=== PATIENT | female | born 1990 | race Two or more races ===

== ENCOUNTER 2024-08-25 05:56 | Emergency (ER) | payer OTHER ==
[~2024-08-25] VITALS: Ht 149.9 cm; Wt 70.0 kg
[2024-08-25] MEDS: PB/HYOSCY/ATR/SCOP/LIDO/MAALOX 55 ML BOTTLE PO ONE (07:03)
[2024-08-25] MEDS: ONDANSETRON HCL 4 MG/2 ML VIAL IVP ONE (07:03)
[2024-08-25] MEDS: SODIUM CHLORIDE 0.9% 1,000 ML IV ONE (07:03)
[2024-08-25 07:57] LABS: ANION GAP 9 mmol/L (8-16); CALCIUM, TOTAL 8.6 mg/dL (8.8-10.5); CARBON DIOXIDE 24 mmol/L (22-29); CHLORIDE 106 mmol/L (98-107); CREATININE 0.64 mg/dL (0.60-1.30); GLOMERULAR FILTR. RATE CALC > 60 mL/min (>60); GLUCOSE,RANDOM 109 mg/dL (70-110); SODIUM SERUM 139 mmol/L (136-145); UREA NITROGEN, BLOOD 10 mg/dL (7-18)
[2024-08-25 08:01] LABS: BASOPHILS % (AUTO) 0.1 % (0.0-2.0); EOSINOPHILS % (AUTO) 0 % (1.0-6.0); HEMATOCRIT 37.8 % (36-46); HEMOGLOBIN 12.9 g/dL (12.0-16.0); LYMPHOCYTES # (AUTO) 0.8 K/uL (1.0-4.8); LYMPHOCYTES % (AUTO) 10.3 % (22.0-44.0); MEAN CORPUSCULAR HEMOGLOBIN 30.2 pg (26.0-34.0); MEAN CORPUSCULAR HGB CONC 34.2 G/dL (31.0-37.0); MEAN CORPUSCULAR VOLUME 88 fL (80-100); MONOCYTES # (AUTO) 0.2 K/uL (0.1-1.0); MONOCYTES % (AUTO) 2.1 % (2.0-9.0); NEUTROPHILS # (AUTO) 6.4 K/uL (1.8-7.7); PLATELET COUNT (AUTO) 321 K/uL (150-450); RED BLOOD CELL COUNT(AUTO) 4.28 MIL/uL (4.00-5.20); RED CELL DISTRIBUTION WIDTH 13.1 % (11.5-14.5); WHITE BLOOD COUNT (AUTO) 7.3 K/uL (4.5-11.0)
[2024-08-25 08:02] LABS: NEUTROPHILS % (AUTO) 87.5 % (40.0-70.0)
[2024-08-25 08:17] LABS: ALANINE AMINOTRANSFERASE 23 U/L (12-78); ALBUMIN 3.8 g/dL (3.4-5.0); ALKALINE PHOSPHATASE 88 U/L (46-116); ASPARTATE AMINOTRANSFERASE 13 U/L (15-37); BILIRUBIN,TOTAL 0.6 mg/dL (0.1-1.0); HCG,QUANTITATIVE < 1 mIU/mL (0-6); LIPASE 26 U/L (16-77); TOTAL PROTEIN, SERUM 7.6 g/dL (6.4-8.2)
[2024-08-25 08:22] LABS: APPEARANCE,URINE HAZY (CLEAR); BILIRUBIN,URINE NEGATIVE (NEGATIVE); COLOR,URINE LIGHT YELLOW (YELLOW); GLUCOSE, URINE (UA) NEGATIVE (NEGATIVE); KETONES,URINE NEGATIVE (NEGATIVE); LEUKOCYTE ESTERASE ,URINE NEGATIVE (NEGATIVE); NITRATE,URINE NEGATIVE (NEGATIVE); OCCULT BLOOD,URINE NEGATIVE (NEGATIVE); PH,URINE 8.5 (5.0-8.0); PROTEIN,URINE TRACE mg/dL (NEGATIVE); SPECIFIC GRAVITIY, URINE 1.019 (1.003-1.030); UROBILINOGEN,URINE <=1.0 mg/dL (<=1.0)
[2024-08-25 09:19] VITALS: BP 125/76; PULSE 74; RESP 20; TEMP 98.2; O2SAT 100
[2024-08-25] MEDS ORDERED: ONDA-104 PO (09:20)
[2024-08-25] MEDS ORDERED: FAMO20 PO (09:20)
== END 2024-08-25 09:44 | disposition home or self-care (01) ==
LOC: EMS 06:06
DX: R10.13 Epigastric pain (principal); R11.10 Vomiting, unspecified; Z98.51 Tubal ligation status
CPT/HCPCS: 99285; 96374; 76700; 96361; 80048; 80076; 81003; 83690; 84702; 85025; 36415; J2405; J7030

== ENCOUNTER 2025-04-17 10:53 | Inpatient (IN) | payer OTHER ==
[~2025-04-17] VITALS: Ht 142.2 cm; Wt 70.0 kg
[~2025-04-17 10:53] MED LIST: FAMO20 PO; ONDA-104 PO
[2025-04-17 12:13] LABS: PLATELET COUNT (AUTO) 275 K/uL (150-450); RED BLOOD CELL COUNT(AUTO) 4.17 MIL/uL (4.00-5.20); RED CELL DISTRIBUTION WIDTH 13.0 % (11.5-14.5); WHITE BLOOD COUNT (AUTO) 8.2 K/uL (4.5-11.0)
[2025-04-17 12:22] LABS: CALCIUM, TOTAL 8.8 mg/dL (8.8-10.5); CREATININE 0.63 mg/dL (0.60-1.30); GLOMERULAR FILTR. RATE CALC > 60 mL/min (>60); GLUCOSE,RANDOM 112 mg/dL (70-110); SODIUM SERUM 138 mmol/L (136-145); UREA NITROGEN, BLOOD 16 mg/dL (7-18)
[2025-04-17] MEDS ORDERED: IOHEXOL 350 MG/ML 100 ML VIAL ONE (13:08)
[2025-04-17] MEDS ORDERED: SODIUM CHLORIDE 0.9% 100 ML ONE (13:08)
[2025-04-17] MEDS: RINGERS SOLUTION,LACTATED 1,000 ML IV ONE (13:25)
[2025-04-17] MEDS: ONDANSETRON HCL 4 MG/2 ML VIAL IVP ONE (13:25)
[2025-04-17] MEDS: ACETAMINOPHEN 1000 MG/ISO-OSM 100 ML IV ONE (13:25)
[2025-04-17] MEDS ORDERED: ONDANSETRON HCL 4 MG/2 ML VIAL IVP PRN (14:15)
[2025-04-17] MEDS ORDERED: BISACODYL 10 MG RECTAL RECTAL SUPPOSITORY PR PRN (14:15)
[2025-04-17] MEDS ORDERED: MAGNESIUM HYDROXIDE SUSPENSION 30 ML UDCUP PO PRN (14:15)
[2025-04-17 14:23] LABS: ASPARTATE AMINOTRANSFERASE 240.0 U/L (15-37); TOTAL PROTEIN, SERUM 7.4 g/dL (6.4-8.2)
[2025-04-17] MEDS: SODIUM CHLORIDE 0.9% 1,000 ML IV SCH (14:34)
[2025-04-17 15:52] LABS: APPEARANCE,URINE CLEAR (CLEAR); GLUCOSE, URINE (UA) NEGATIVE (NEGATIVE); LEUKOCYTE ESTERASE ,URINE LARGE (NEGATIVE); NITRATE,URINE NEGATIVE (NEGATIVE); OCCULT BLOOD,URINE NEGATIVE (NEGATIVE); SPECIFIC GRAVITIY, URINE 1.029 (1.003-1.030)
[2025-04-17 16:11] LABS: SQUAMOUS EPITHELIAL CELL,UR Few /LPF (None Seen)
[2025-04-17] MEDS ORDERED: PIPERACILLIN/TAZO 3.375 GM/D5W 50 ML IV ONE (16:45)
[2025-04-17 17:00] VITALS: BP 100/58; PULSE 52; RESP 18; TEMP 99; O2SAT 100
[2025-04-17] MEDS: PIPERACILLIN/TAZO 3.375 GM/D5W 50 ML IV SCH (17:20)
[2025-04-17 19:41] VITALS: BP 117/57; PULSE 53; RESP 18; TEMP 98.8; O2SAT 100
[2025-04-17] MEDS: DOCUSATE SODIUM 100 MG CAPSULE PO SCH (21:00)
[2025-04-18 04:28] VITALS: BP 107/70; PULSE 58; RESP 18; TEMP 98.8; O2SAT 98
[2025-04-18] MEDS: ETHYL ALCOHOL 62% ANTISEPTIC NASAL SANITIZER 0.6 ML AMPUL NASAL ONE (09:08)
[2025-04-18] MEDS: RINGERS SOLUTION,LACTATED 1,000 ML IV ONE (09:08)
[2025-04-18] MEDS: PANTOPRAZOLE SODIUM 40 MG/VIAL IVP SCH (09:09)
[2025-04-18 09:24] VITALS: BP 98/67; PULSE 60; RESP 16; TEMP 98.4; O2SAT 99
[2025-04-18] MEDS: CHLORHEXIDINE GLUCONATE 2% TOWELETTE [2'S/6'S] TP ONE (11:19)
[2025-04-18] MEDS ORDERED: GLYCOPYRROLATE 0.2 MG/ML VIAL ONE (12:00)
[2025-04-18] MEDS ORDERED: LIDOCAINE/PF 2% 5 ML VIAL ONE (12:00)
[2025-04-18] MEDS ORDERED: PROPOFOL 1% 20 ML VIAL IVP ONE (12:00)
[2025-04-18] MEDS ORDERED: ONDANSETRON HCL 4 MG/2 ML VIAL ONE (12:00)
[2025-04-18] MEDS ORDERED: MIDAZOLAM HCL 2 MG/2 ML VIAL ONE (12:00)
[2025-04-18] MEDS ORDERED: ROCURONIUM BROMIDE 10 MG/ML 5 ML VIAL ONE (12:00)
[2025-04-18] MEDS ORDERED: KETOROLAC TROMETHAMINE 60 MG/2 ML VIAL IM ONE (12:00)
[2025-04-18] MEDS ORDERED: FentaNYL CITRATE PF 100 MCG/2 ML VIAL ONE (12:00)
[2025-04-18] MEDS ORDERED: SUGAMMADEX SODIUM 200 MG/2 ML VIAL IVP ONE (12:00)
[2025-04-18] MEDS ORDERED: IOHEXOL 240 MG/ML 20 ML VIAL ONE (12:07)
[2025-04-18] MEDS: BUPIVACAINE 0.25%/EPI 1:200,000/PF 30 ML VIAL ONE (13:02)
[2025-04-18 14:40] VITALS: BP 109/65; PULSE 59; RESP 18; TEMP 98.9; O2SAT 98
[2025-04-18] MEDS: ACETAMINOPHEN 325 MG TABLET PO PRN (15:16)
[2025-04-18 20:00] VITALS: BP 115/68; PULSE 59; RESP 18; TEMP 98.6; O2SAT 99
[2025-04-18] MEDS: MORPHINE SULFATE 4 MG/ML SYRINGE IVP PRN (20:24)
[2025-04-19 04:00] VITALS: BP 127/70; PULSE 55; RESP 18; TEMP 99.1; O2SAT 100
[2025-04-19 06:51] LABS: PLATELET COUNT (AUTO) 255 K/uL (150-450); RED BLOOD CELL COUNT(AUTO) 3.56 MIL/uL (4.00-5.20); RED CELL DISTRIBUTION WIDTH 12.9 % (11.5-14.5); WHITE BLOOD COUNT (AUTO) 7.3 K/uL (4.5-11.0)
[2025-04-19 07:06] LABS: ASPARTATE AMINOTRANSFERASE 57 U/L (15-37); CALCIUM, TOTAL 8.1 mg/dL (8.8-10.5); CREATININE 0.41 mg/dL (0.60-1.30); GLOMERULAR FILTR. RATE CALC > 60 mL/min (>60); GLUCOSE,RANDOM 160 mg/dL (70-110); SODIUM SERUM 138 mmol/L (136-145); TOTAL PROTEIN, SERUM 6.2 g/dL (6.4-8.2); UREA NITROGEN, BLOOD 4 mg/dL (7-18)
[2025-04-19 08:20] VITALS: BP 118/72; PULSE 68; RESP 20; TEMP 98.8; O2SAT 99
[2025-04-19] MEDS ORDERED: ONDA-104 PO (10:26)
[2025-04-19] MEDS ORDERED: AMOX1TAB15 PO (10:26)
[2025-04-19] MEDS ORDERED: SODIUM CHLORIDE 0.9% 250 ML IV ONE (11:41)
== END 2025-04-19 15:35 | disposition home or self-care (01) | DRG 263 ==
LOC: EMS 10:53 → EDH 15:53 → 4E 16:30
PROVIDERS: ADMIT Internal Medicine; ATTEND Internal Medicine
PROC: BF131ZZ Fluoroscopy of Gallbladder and Bile Ducts using Low Osmolar Contrast (ICD-10-PCS; 2025-04-18)
PROC: 0FT44ZZ Resection of Gallbladder, Percutaneous Endoscopic Approach (ICD-10-PCS; principal; 2025-04-18 12:40)
DX: K85.10 Biliary acute pancreatitis without necrosis or infection (principal); E66.9 Obesity, unspecified; Z79.899 Other long term (current) drug therapy; Z68.34 Body mass index [BMI] 34.0-34.9, adult
CPT/HCPCS: 74176; 76700; 80048; 80053; 80076; 81001; 83690; 84703; 85025; 87081; 87086; 99285; G0378; J0131; J0690; J1171; J1885; J2250; J2270; J2405; J2470; J2543; J2704; J3010; J3490; J7030; J7050; J7120; Q9966